=== PATIENT | female | born 1935 | race Caucasian/White ===

== ENCOUNTER 2017-11-15 03:16 | Emergency (ER) | payer MEDICARE, BC ==
[~2017-11-15] VITALS: Ht 167.6 cm; Wt 88.8 kg
[~2017-11-15 03:16] MED LIST: BABY ASPIRIN81 MG PO; CALCIUM/D250 MG PO; CALCIUM600 MG OR; DILAUDID 2MG2 MG/TA1 PO; FLONASE NASAL50 MCG; HYDROCHLOROT25 MG PO; KEFLEX250 MG PO; METOPROL TAR50 MG PO; METOPROLOL TART50 MG PO; ROBITUSSIN200 MG/10 PO; SIMVASTATIN40 MG OR; SIMVASTATIN40 MG PO; VITAMIN D1000 UNIT OR; ZIAC 55 MG OR; ZIAC 55 MG PO; ZPAK PO
[2017-11-15 04:17] LABS: HEMATOCRIT 40.4 % (37.0-47.0); HEMOGLOBIN 13.5 g/dl (12.0-16.0); IMMATURE GRANULOCYTES 0.2 % (0.0-1.0); MEAN CORPUSCULAR HGB 31.4 pG CALC (26.0-32.0); MEAN CORPUSCULAR HGB CONC 33.4 g/L CALC (32.0-36.0); NEUT# 2.44 thou/uL (2.00-7.15); RED BLOOD COUNT 4.3 mill/uL (4.20-5.60); RED CELL DISTRI WIDTH 12.5 % (11.5-15.5)
[2017-11-15 04:24] LABS: ALBUMIN 3.7 g/dL (3.2-5.0); ALKALINE PHOSPHATASE 103 u/l (38-126); ANION GAP 15 (6-22 (CALC)); BILIRUBIN, TOTAL 0.5 mg/dL (0.0-1.4); BUN 22 mg/dL (8-23); BUN/CREATININE RATIO 27 (12-20 (CALC)); CARBON DIOXIDE 25 mmol/l (22-30); CHLORIDE 105 mmol/l (95-108); CREATININE 0.8 mg/dL (0.5-1.0); GFR > 60 ML/MIN (>=60 (CALC)); GFR FOR AFR.AMER. > 60 ML/MIN (>=60 (CALC)); POTASSIUM 3.3 mmol/l (3.5-5.1); SGOT/AST 20 u/l (9-36); SGPT/ALT 37 u/l (11-66); SODIUM 142 mmol/l (137-146); TOTAL PROTEIN 6.6 g/dL (6.3-8.2)
[2017-11-15 05:04] VITALS: BP 159/72
== END 2017-11-15 05:09 | disposition home or self-care (01) ==
LOC: ED 03:16
PROVIDERS: Emergency Medicine
DX: I10 Essential (primary) hypertension (principal)

== ENCOUNTER 2017-12-21 19:28 | Observation (INO) | payer MEDICARE, BC ==
[~2017-12-21] VITALS: Ht 167.6 cm; Wt 89.0 kg
[2017-12-21 19:57] LABS: HEMATOCRIT 38.6 % (37.0-47.0); HEMOGLOBIN 12.8 g/dl (12.0-16.0); IMMATURE GRANULOCYTES 0.2 % (0.0-1.0); MEAN CELL VOLUME 93.9 fL CALC (80.0-100.0); MEAN CORPUSCULAR HGB 31.1 pG CALC (26.0-32.0); MEAN CORPUSCULAR HGB CONC 33.2 g/L CALC (32.0-36.0); NEUT# 3.26 thou/uL (2.00-7.15); RED BLOOD COUNT 4.11 mill/uL (4.20-5.60); RED CELL DISTRI WIDTH 12.5 % (11.5-15.5); URINE BILIRUBIN - DIPSTICK NEGATIVE (NEGATIVE); URINE BLOOD DIPSTICK TRACE-LYSED (NEGATIVE); URINE CLARITY HAZY; URINE COLOR YELLOW; URINE GLUCOSE - DIPSTICK NEGATIVE (NEGATIVE); URINE KETONE NEGATIVE (NEGATIVE); URINE LEUK ESTERASE SMALL (NEGATIVE); URINE NITRITE - DIPSTICK NEGATIVE (Negative); URINE PROTEIN - DIPSTICK NEGATIVE (NEG-TRACE); URINE SPECIFIC GRAVITY >=1.030; URINE UROBILINOGEN - DIPSTICK 0.2 E.U./dL (0.2)
[2017-12-21 20:09] LABS: URINE WBC 20-50 WBC/hpf (0-5)
[2017-12-21 20:10] LABS: ALBUMIN 3.8 g/dL (3.2-5.0); ALKALINE PHOSPHATASE 93 u/l (38-126); ANION GAP 20 (6-22 (CALC)); BILIRUBIN, TOTAL 0.6 mg/dL (0.0-1.4); BUN 24 mg/dL (8-23); BUN/CREATININE RATIO 28 (12-20 (CALC)); CARBON DIOXIDE 22 mmol/l (22-30); CHLORIDE 107 mmol/l (95-108); CREATININE 0.9 mg/dL (0.5-1.0); GFR 60 ML/MIN (>=60 (CALC)); GFR FOR AFR.AMER. > 60 ML/MIN (>=60 (CALC)); POTASSIUM 3.2 mmol/l (3.5-5.1); SGOT/AST 24 u/l (9-36); SGPT/ALT 32 u/l (11-66); SODIUM 146 mmol/l (137-146); TOTAL PROTEIN 6.8 g/dL (6.3-8.2); URINE SQUAMOUS EPITHELIAL CELL FEW EPI/hpf (0-FEW)
[2017-12-21 20:21] LABS: MYOGLOBIN 40 ng/mL (0 - 62)
[2017-12-21] MEDS ORDERED: LOSARTAN POTASS50 MG PO (20:29)
[2017-12-21 21:10] VITALS: BP 136/61
[2017-12-22] VITALS: BP 142/67
[2017-12-22 04:15] VITALS: BP 122/68
[2017-12-22 08:11] VITALS: BP 148/74
[2017-12-22 09:30] VITALS: BP 148/74
[2017-12-22 09:49] LABS: ANION GAP 14 (6-22 (CALC)); BUN 19 mg/dL (8-23); BUN/CREATININE RATIO 27 (12-20 (CALC)); CARBON DIOXIDE 24 mmol/l (22-30); CHLORIDE 110 mmol/l (95-108); CREATININE 0.7 mg/dL (0.5-1.0); GFR > 60 ML/MIN (>=60 (CALC)); GFR FOR AFR.AMER. > 60 ML/MIN (>=60 (CALC)); POTASSIUM 3.6 mmol/l (3.5-5.1); SODIUM 145 mmol/l (137-146)
[2017-12-22] MEDS ORDERED: KEFLEX500 MG PO (12:55)
== END 2017-12-22 15:55 | disposition home or self-care (01) ==
LOC: ED 19:28 → ED-I 20:10 → ED 20:26 → MS2 20:27
PROVIDERS: Emergency Medicine; Nurse Practitioner Family; ADMIT Internal Medicine; ATTEND Internal Medicine
DX: R07.2 Precordial pain (principal); I11.9 Hypertensive heart disease without heart failure; N39.0 Urinary tract infection, site not specified; E87.6 Hypokalemia; I71.4 Abdominal aortic aneurysm, without rupture; Z87.891 Personal history of nicotine dependence

== ENCOUNTER 2018-04-11 06:49 | Emergency (ER) | payer MEDICARE, BC ==
[~2018-04-11] VITALS: Ht 167.6 cm; Wt 85.0 kg
[~2018-04-11 06:49] MED LIST changes: +KEFLEX500 MG PO; +LOSARTAN POTASS50 MG PO
[2018-04-11 07:44] LABS: HEMATOCRIT 38.9 % (37.0-47.0); HEMOGLOBIN 12.9 g/dl (12.0-16.0); MEAN CORPUSCULAR HGB 31.2 pG CALC (26.0-32.0); MEAN CORPUSCULAR HGB CONC 33.2 g/L CALC (32.0-36.0); NEUT# 2.35 thou/uL (2.00-7.15); RED BLOOD COUNT 4.14 mill/uL (4.20-5.60); RED CELL DISTRI WIDTH 12.4 % (11.5-15.5)
[2018-04-11 07:57] LABS: ALBUMIN 3.7 g/dL (3.2-5.0); ALKALINE PHOSPHATASE 80 u/l (38-126); ANION GAP 12 (6-22 (CALC)); BILIRUBIN, TOTAL 0.6 mg/dL (0.0-1.4); BUN 16 mg/dL (8-23); BUN/CREATININE RATIO 22 (12-20 (CALC)); CARBON DIOXIDE 24 mmol/l (22-30); CHLORIDE 108 mmol/l (95-108); CREATININE 0.7 mg/dL (0.5-1.0); GFR > 60 ML/MIN (>=60 (CALC)); GFR FOR AFR.AMER. > 60 ML/MIN (>=60 (CALC)); POTASSIUM 3.5 mmol/l (3.5-5.1); SGOT/AST 21 u/l (9-36); SGPT/ALT 23 u/l (11-66); SODIUM 141 mmol/l (137-146); TOTAL PROTEIN 6.4 g/dL (6.3-8.2)
[2018-04-11 09:16] LABS: URINE BILIRUBIN - DIPSTICK NEGATIVE (NEGATIVE); URINE BLOOD DIPSTICK NEGATIVE (NEGATIVE); URINE COLOR YELLOW; URINE GLUCOSE - DIPSTICK NEGATIVE (NEGATIVE); URINE KETONE NEGATIVE (NEGATIVE); URINE NITRITE - DIPSTICK NEGATIVE (Negative); URINE PROTEIN - DIPSTICK NEGATIVE (NEG-TRACE); URINE UROBILINOGEN - DIPSTICK 0.2 E.U./dL (0.2)
[2018-04-11 09:17] LABS: URINE CLARITY CLEAR
[2018-04-11 09:18] LABS: URINE LEUK ESTERASE TRACE (NEGATIVE)
[2018-04-11 09:45] VITALS: BP 152/73
== END 2018-04-11 09:56 | disposition home or self-care (01) ==
LOC: ED 06:49
PROVIDERS: Emergency Medicine
DX: R51 Headache (principal); I11.9 Hypertensive heart disease without heart failure; R20.2 Paresthesia of skin

== ENCOUNTER 2018-10-05 07:59 | Emergency (ER) | payer MEDICARE, BC ==
[~2018-10-05] VITALS: Ht 167.6 cm; Wt 90.9 kg
[2018-10-05] MEDS ORDERED: LOSARTAN POT50 MG PO (08:18)
[2018-10-05 08:28] VITALS: BP 131/62
== END 2018-10-05 08:40 | disposition home or self-care (01) ==
LOC: ED 07:59
DX: I10 Essential (primary) hypertension (principal)

== ENCOUNTER 2018-11-28 01:33 | Emergency (ER) | payer MEDICARE, BC ==
[~2018-11-28] VITALS: Ht 167.6 cm; Wt 87.2 kg
[~2018-11-28 01:33] MED LIST changes: +LOSARTAN POT50 MG PO
[2018-11-28] MEDS ORDERED: TORADOL PO (02:53)
[2018-11-28] MEDS ORDERED: LOSARTAN POT100 MG PO (02:53)
[2018-11-28 03:06] VITALS: BP 151/61
== END 2018-11-28 03:06 | disposition home or self-care (01) ==
LOC: ED 01:33
DX: M75.92 Shoulder lesion, unspecified, left shoulder (principal); I10 Essential (primary) hypertension

== ENCOUNTER 2019-11-08 | Emergency (ER) | payer MEDICARE, BC ==
[~2019-11-08] MED LIST changes: +LOSARTAN POT100 MG PO; +TORADOL PO
[2019-11-08] MEDS ORDERED: LOSARTAN POTASS50 MG PO (19:06)
[2019-11-08 19:42] LABS: HEMATOCRIT 39.7 % (37.0-47.0); IMMATURE GRANULOCYTES 0.2 % (0.0-5.0); MEAN CELL VOLUME 94.3 fL CALC (80.0-100.0); MEAN CORPUSCULAR HGB 30.9 pG CALC (26.0-32.0); MEAN CORPUSCULAR HGB CONC 32.7 g/dL CAL (32.0-36.0); NEUT# 3.93 thou/uL (2.00-7.15); RED BLOOD COUNT 4.21 mill/uL (4.20-5.60); RED CELL DISTRI WIDTH 12.8 % (11.5-15.5)
[2019-11-08 20:01] LABS: ALKALINE PHOSPHATASE 86 u/l (38-126); AMYLASE 93 u/l (30-110); ANION GAP 12 (6-22 (CALC)); BILIRUBIN, TOTAL 0.7 mg/dL (0.0-1.4); BUN 17 mg/dL (8-23); BUN/CREATININE RATIO 22 (12-20 (CALC)); CARBON DIOXIDE 23 mmol/l (22-30); CHLORIDE 106 mmol/l (95-108); CREATININE 0.8 mg/dL (0.5-1.0); GFR > 60 ML/MIN (>=60 (CALC)); GFR FOR AFR.AMER. > 60 ML/MIN (>=60 (CALC)); LIPASE 54 u/l (23-300); POTASSIUM 3.9 mmol/l (3.5-5.1); SGOT/AST 25 u/l (9-36); SODIUM 136 mmol/l (137-146); TOTAL PROTEIN 7.2 g/dL (6.3-8.2)
[2019-11-08 20:04] LABS: ACT PARTIAL THROMBO TIME 26.1 SECONDS (20.0-32.5); D-DIMER 2.93 mg/L (0.19-0.60); INTERNATIONAL NORMALIZED RATIO 1.1 RATIO (0.7-1.3); PROTHROMBIN TIME 11.4 SECONDS (9.0-12.5)
[2019-11-08 20:12] LABS: MYOGLOBIN 47 ng/mL (0 - 62)
[2019-11-08 20:33] LABS: URINE BILIRUBIN - DIPSTICK NEGATIVE (NEGATIVE); URINE BLOOD DIPSTICK NEGATIVE (NEGATIVE); URINE COLOR YELLOW; URINE GLUCOSE - DIPSTICK NEGATIVE (NEGATIVE); URINE KETONE NEGATIVE (NEGATIVE); URINE NITRITE - DIPSTICK NEGATIVE (Negative); URINE PROTEIN - DIPSTICK NEGATIVE (NEG-TRACE); URINE SPECIFIC GRAVITY 1.015; URINE UROBILINOGEN - DIPSTICK 0.2 E.U./dL (0.2)
[2019-11-08 20:39] LABS: URINE LEUK ESTERASE SMALL (NEGATIVE)
[2019-11-08 20:47] LABS: URINE RBC 0-2 RBC/hpf (0-5); URINE SQUAMOUS EPITHELIAL CELL FEW EPI/hpf (0-FEW)
[2019-11-08] MEDS ORDERED: TORADOL PO (21:46)
== END 2019-11-08 22:29 | disposition home or self-care (01) ==
PROVIDERS: Family Medicine
DX: M54.6 Pain in thoracic spine (principal); I71.2 Thoracic aortic aneurysm, without rupture; I10 Essential (primary) hypertension
CPT/HCPCS: Q9967